=== PATIENT | female | born 1985 | race Caucasian/White ===

== ENCOUNTER 2019-12-31 17:55 | Outpatient (CLI) | payer BC ==
[~2019-12-31] VITALS: Ht 160 cm; Wt 73.6 kg
--- NOTE | 2019-12-31 17:35 | NUR ---
Pt arrives on unit ambulatory with spouse. States vague feeling of "water breaking" around 1400. Small increase of watery discharge. Denies regular ctx, vaginal bleeding and reports GFM. Pt states reccent intercourse last night. Changed into clean gown. EFM and toco applied. VSS. Amniotest negative. Mucous noted on glove. Amniotest negative with mucous on glove. Admission assessment completed. Dr. Srinivasan notified. Ok to discharge with reactive FHR strip.
[2019-12-31 17:57] VITALS: BP 126/70; PULSE 91; TEMP 98
[2019-12-31] MEDS ORDERED: PRENATAL MVI (18:08)
== END 2019-12-31 17:58 | disposition home or self-care (01) ==
LOC: LDRO 17:55
DX: O42.92 Full-term premature rupture of membranes, unspecified as to length of time between rupture and onset of labor (principal); Z3A.40 40 weeks gestation of pregnancy; Z86.14 Personal history of Methicillin resistant Staphylococcus aureus infection

== ENCOUNTER 2020-01-01 02:36 | Inpatient (IN) | payer BC ==
[2020-01-01] VITALS (14 sets, daily range): BP systolic 100–125; BP diastolic 50–76; PULSE 78–125; TEMP 97.4–98.3
[~2020-01-01] VITALS: Ht 157.5 cm; Wt 74.1 kg
[~2020-01-01 02:36] MED LIST: PRENATAL MVI
--- NOTE | 2020-01-01 02:40 | NUR ---
0240- PT PRESENTS TO [facility] COMPLAINING OF CONTRACTIONS, TO ROOM LR3, CHANGED INTO GOWN. 0244- EFM X2 APPLIED. PT DENIES LEAKING FLUID OR VAGINAL BLEEDING. STATES SHE HAS BEEN HAVING REGULAR MORE PAINFUL CONTRACTIONS SINCE AROUND MIDNIGHT. STATE SHE IS ALSO FEELING BABY MOVE. PLAN OF CARE FOR LABOR CHECK DISCUSSED AND QUESTIONS ANSWERED. 0250- SVE BY THIS NURSE . PLAN OF CARE DISCUSSED. 0300- NURSING ADMISSION HISTORY AND ASSESSMENT COMPLETE. 0325- PT STANDS AT SIDE OF BED. DIFFICULT TO MONITOR. 0330- MONITORS ADJUSTED AND TRACING . 0335- PT STILL STANDING AT SIDE OF BED. MONITORS HAVING DIFFICULTY TRACING HEART TONES. NURSE AT BEDSIDE ADJUSTING. 0339- MATERNAL HEART RATE VERIFIED WITH SPO2 MONITOR, NURSE AT BEDSIDE ADJUSTING MONITORS AND VERIFIES THAT EFM IS TRACING MATERNAL HEART BEAT AND NOT AT THIS TIME. 0345- MONITOR CONTINUED TO TRACE MATERNAL UP UNTIL THIS TIME. NURSE AT BEDSIDE WHOLE TIME ADJUSTING MONITOR AND SPO2 ON PT VERIFYING THAT MATERNAL HEART RATE IS TRACING ON EFM. PT FINALLY AGREES TO TRY LYING BACK IN BED AND EFM ADJUSTED TO EASILY TRACE HEART RATE AGAIN. SPO2 LEFT ON TO VERIFY DIFFERENCE IN HEART RATES. 0350- SVE BY THIS NURSE UNCHANGED. DISCUSSED CONTINUING WITH LABOR CHECK FOR AN ADDITIONAL HOUR. PT AGREEABLE TO THIS BUT WOULD LIKE TO GET UP AND MOVE AROUND. DISCUSSED GETTING MORE STRIP WITH GOOD EFM TRACING AND SPO2 VERIFICATION AND THEN SHE COULD GET UP. 0400- EFM REMOVED AND PT UP TO WALK IN ROOM AND IN HALLS. STATES SHE FEELS HER CONTRACTIONS ARE STRONGER WHEN SHE IS UP.
--- NOTE | 2020-01-01 05:37 | NUR ---
0537- IV START CHARTED, LR INFUSING 0540- SVE BY THIS NURSE 3-/-2 0545- PEN G INFUSING
[2020-01-01 06:04] LABS: BASO % 0.2 % (0.0-2.0); EOS % 0.1 % (0-4.0); GRAN # 11.3 (1.4-6.5); GRAN % 85.6 % (42.2-75.2); HEMOGLOBIN 12.4 g/dl (12.5-16.0); LYMPH # 1.1 (1.2-3.4); LYMPH % 8.4 % (20.0-51.0); MEAN CELL VOLUME 92 fl (80.0-100.0); MEAN CORPUSCULAR HEMOGLOBIN 31 pg (27.0-31.0); MEAN CORPUSCULAR HGB CONC 34 g/dl (33.0-37.0); MEAN PLATELET VOLUME 10.4 fl (7.4-10.4); MONO # 0.7 (0.1-0.6); MONO % 5.2 % (1.7-9.3); PLATELET COUNT 237 K/mm3 (130-400); RED BLOOD COUNT 3.97 M/mm3 (4.10-5.30); REDCELL DISTRIBUTION WIDTH-CV 13.2 % (11.5-14.5)
[2020-01-01 06:18] LABS: HEMATOCRIT 36.5 % (37.0-47.0)
--- NOTE | 2020-01-01 07:39 | NUR ---
0615 REPORT TAKEN BY Ruth Ann TELLES RN. ASSUME CARE OF PATIENT BY THIS NURSE AT THIS TIME. SAO2 ON MOTHER HEARTRATE 113 AND BABY FHT 114 PER MONITOR. PATIENT STANDS AT BEDSIDE.TALK WITH PATIENT AND PATIENT STATES I HAVE BEEN LEAKING CLEAR FLUID SINCE 0600 THIS AM. CLEAR FLUID NOTED TO LEGS WITH STANDING.
--- NOTE | 2020-01-01 07:44 | NUR ---
0630 PATIENT TO BED. SVE /-2. LARGE AMOUNT CLEAR FLUID NOTED WITH SVE. SCALP ELECTRODE PLACED AT THIS TIME ALSO. PATIENT TOLERATES WELL. DR MAGALLANES CALLED AND UPDATED.ON ALL ABOVE INFORMATION AND TO COME FOR DELIVERY. PATIENT FEELING PRESSURE WITH CONTRACTIONS.
--- NOTE | 2020-01-01 07:55 | NUR ---
0650 PATIENT FEELING MORE PRESSURE. DR MAGALLANES CALLED AGAIN TO COME NOW FOR DELIVERY BY Ruth Ann LONDONO RN. THIS NURSE AT BEDSIDE FOR DELIVERY WAITING FOR DR. BELL.
--- NOTE | 2020-01-01 08:01 | NUR ---
0700 DEEP VARIABLES NOTED AFTER EVERY CONTRACTION, PATIENT FEELING LOTS OF PRESSURE. WAITING ON DR FOR DELIVERY. Juhi RAMIREZ RN NURSERY NURSE AT BEDSIDE ALONG WITH THIS NURSE. SVE /+1. 0702 DR MAGALLANES AT BEDSIDE FOR DELIVERY. WILL HAVE PATIENT PUSH WITH NEXT FEELING OF PRESSURE. 0708 PUSHES AND DELIVERS BABY GIRL VIA . TOLERATES WELL. CORD CLAMPED AND CUT BY DR AND . BABY TO MOM CHEST.BLEEDING WNL. 0713 PLACENTA DELIVERED, AND PITOCIN STARTED AT 333 PER PROTOCOL. FUNDUS FIRM AND BLEEDING WNL.
[2020-01-02 03:00] VITALS: BP 101/77; PULSE 73; TEMP 98.1
--- NOTE | 2020-01-02 09:09 | NUR ---
Initial visit; Parents thanked Hand Car[employer] for offering congratulations and God's blessings for the of their daughter. Hand Carver thanked family for choosing [facility].
[2020-01-02 09:23] VITALS: BP 98/68; PULSE 70; TEMP 98.1
[2020-01-02 16:06] VITALS: BP 113/70; PULSE 72; TEMP 97.6
[2020-01-02 20:40] VITALS: BP 111/71; PULSE 85; TEMP 97.9
[2020-01-03 08:16] VITALS: BP 111/70; PULSE 82; TEMP 97.6
--- NOTE | 2020-01-03 09:39 | NUR ---
Patient given discharge instructions. Denies questions.
== END 2020-01-03 09:50 | disposition home or self-care (01) | DRG 807 ==
LOC: LDRO 02:36 → LDR 02:57 → LDRO 05:04 → LDR 05:06 → OB 08:35
PROVIDERS: Obstetrics & Gynecology; ADMIT Obstetrics & Gynecology
PROC: 10E0XZZ Delivery of Products of Conception, External Approach (ICD-10-PCS; principal; 2020-01-01)
DX: O48.0 Post-term pregnancy (principal); Z37.0 Single live birth; O99.824 Streptococcus B carrier state complicating childbirth; O69.81X0 Labor and delivery complicated by cord around neck, without compression, not applicable or unspecified; O99.02 Anemia complicating childbirth; D64.9 Anemia, unspecified; Z3A.40 40 weeks gestation of pregnancy
CPT/HCPCS: J2540; J7120